=== PATIENT | male | born 1980 ===

== ENCOUNTER 2017-07-02 21:51 | Inpatient (IN) | payer MEDICAID ==
[2017-07-02 22:05] VITALS: BMI 29.9
[2017-07-02] MEDS ORDERED: Sodium Chloride 0.9% 1,000 ML IV STA (23:53)
--- NOTE | 2017-07-03 00:12 | ED PDOC ---
Upper Extremity Pain/Injury Time Seen by Provider: 07/02/17 22:00 Chief Complaint (Nursing): Upper Extremity Problem/Injury Chief Complaint (Provider): Upper Extremity Problem/Injury History Per: Patient History/Exam Limitations: no limitations Onset/Duration Of Symptoms: Days (x 3) Current Symptoms Are (Timing): Still Present Additional Complaint(s): 36 years old drug abuser male presents to the ED for evaluation of right arm swelling and pain onset 3 days. Patient reports having a bite or pimple on the forearm that drains a watery clear discharge. He states he has experienced erythema through the whole arm as well as subjective fever. Patient reports he has been withdrawing from Heroin use. He denies having any allergies. PMD: non provided Past Medical History Reviewed: Historical Data, Nursing Documentation, Vital Signs Vital Signs: Last Vital Signs Temp 98.3 F 07/02/17 22:05 Pulse 103 H 07/02/17 22:05 Resp 18 07/02/17 22:05 BP 122/80 07/02/17 22:05 Pulse Ox 96 07/02/17 22:05 - Medical History PMH: No Chronic Diseases Denies: Diabetes, Hepatitis, HIV, HTN, Chronic Kidney Disease, Seizures, Sexually Transmitted Disease - Surgical History Surgical History: No Surg Hx - Family History Family History: States: Unknown Family Hx - Social History Current smoker - smoking cessation education provided: Yes Alcohol: Social Drugs: Opiates - Immunization History Hx Tetanus Toxoid Vaccination: Yes Hx Influenza Vaccination: Yes Hx Pneumococcal Vaccination: Yes - Home Medications Home Medications: Ambulatory Orders Medication Instructions Recorded No Known Home Med 07/03/17 - Allergies Allergies/Adverse Reactions: Allergies Allergy/AdvReac Type Severity Reaction Status Date / Time No Known Allergies Allergy Verified 07/02/17 22:05 Review of Systems ROS Statement: Except As Marked, All Systems Reviewed And Found Negative Constitutional: Positive for: Fever (subjective) Musculoskeletal: Positive for: Arm Pain (Right arm) Physical Exam - Reviewed Nursing Documentation Reviewed: Yes Vital Signs Reviewed: Yes - Physical Exam Appears: Positive for: Non-toxic, No Acute Distress Head Exam: Positive for: ATRAUMATIC, NORMOCEPHALIC Skin: Positive for: Warm Eye Exam: Positive for: Normal appearance Neck: Positive for: Normal Cardiovascular/Chest: Positive for: Regular Rate, Rhythm Respiratory: Positive for: Normal Breath Sounds Gastrointestinal/Abdominal: Positive for: Normal Exam, Soft Extremity: Positive for: Normal ROM, Tenderness (Right arm consistant with cellulitis), Swelling Neurologic/Psych: Positive for: Alert, Oriented. Negative for: Motor/Sensory Deficits (Intact) - Laboratory Results Result Diagrams: 07/04/17 06:00 07/03/17 00:05 - ECG O2 Sat by Pulse Oximetry: 96 (RA) Pulse Ox Interpretation: Normal Medical Decision Making Medical Decision Making: Time: 2351 Initial Impression: Cellulitis r forearm, histoyr of ivda Initial Plan: --CMP --CBC --NaCl 1,000 ml --Toradol 30 mg IV --Unasyn 3 mg --Blood culture [id number] Patient will be admitted for cellulitis under Dr. Sharp's care, the hospitalist. iv abx ordered Scribe Attestation: Documented by Kyleigh Means, acting as a scribe for Antonio Harding MD. Provider Scribe Attestation: All medical record entries made by the Scribe were at my direction and personally dictated by me. I have reviewed the chart and agree that the record accurately reflects my personal performance of the history, physical exam, medical decision making, and the department course for this patient. I have also personally directed, reviewed, and agree with the discharge instructions and disposition. Disposition - Clinical Impression Clinical Impression: Cellulitis and abscess of upper arm and forearm - Patient ED Disposition Is Patient to be Admitted: Yes Counseled Patient/Family Regarding: Studies Performed, Diagnosis - Disposition Disposition Time: 23:00 Condition: STABLE
[2017-07-03 00:47] LABS: ALB/GLOB RATIO 1.1 (1.0-2.1); GFR AFRICAN-AMERICAN > 60; GFR NON-AFRICAN AMERICAN > 60
[2017-07-03 00:49] LABS: ALT/SGPT 31 U/L (21-72); AST/SGOT 30 U/L (17-59); BLOOD UREA NITROGEN 9 mg/dl (9-20)
[2017-07-03 01:07] LABS: BASO # 0.1 K/uL (0.0-0.2); BASO % 0.5 % (0.0-2.0); EOS # 0.2 K/uL (0.0-0.7); EOS % 1.9 % (0.0-4.0); HEMOGLOBIN 13.8 g/dL (12.0-18.0); LYMPH # 1.6 K/uL (1.0-4.3); LYMPH % 14.1 % (20.0-40.0); MEAN CELL VOLUME 85.4 fl (80.0-94.0); MEAN CORPUSCULAR HEMOGLOBIN 29.7 pg (27.0-31.0); MEAN CORPUSCULAR HGB CONC 34.7 g/dL (33.0-37.0); MEAN PLATELET VOLUME 9.4 fl (7.2-11.7); MONO # 0.7 K/uL (0.0-0.8); MONO % 6.5 % (0.0-10.0); NEUT # 8.6 K/uL (1.8-7.0); NRBC % 0.1 % (0.0-0.0); RBC 4.66 Mil/uL (4.40-5.90); RED CELL DISTRIBUTION WIDTH 13.7 % (11.5-14.5); WHITE BLOOD COUNT 11.1 K/uL (4.8-10.8)
[2017-07-03] MEDS: Enoxaparin 40 mg Syringe SC SCH (08:32)
[2017-07-03] MEDS: Sodium Chloride 0.9% 1,000 ML IV SCH ×2 (09:09→15:34)
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
[2017-07-03] MEDS ORDERED: Vancomycin 500 mg Inj IVPB SCH (15:15)
--- NOTE | 2017-07-03 17:40 | US ---
PROCEDURE: Extremity nonvascular ultrasound HISTORY: Cellulitis R/O abscess COMPARISON: None TECHNIQUE: Standard protocol for this study/examination. FINDINGS: Cutaneous and subcutaneous edema. Ill-defined hypoechoic area corresponding findings on physical examination measuring 0.7 x 2.1 x 2.4 cm likely a developing abscess. IMPRESSION: Phlegmonous process corresponding findings on physical examination right elbow at the site of redness and swelling. Cutaneous subcutaneous edema documented.
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
[2017-07-04] MEDS: Sodium Chloride 0.9% 1,000 ML IV SCH ×2 (02:30→05:30)
[2017-07-04 06:32] LABS: HEMOGLOBIN 14.2 g/dL (12.0-18.0); MEAN CELL VOLUME 85.6 fl (80.0-94.0); MEAN CORPUSCULAR HEMOGLOBIN 29.4 pg (27.0-31.0); MEAN CORPUSCULAR HGB CONC 34.4 g/dL (33.0-37.0); RBC 4.84 Mil/uL (4.40-5.90); RED CELL DISTRIBUTION WIDTH 13.5 % (11.5-14.5); WHITE BLOOD COUNT 10.7 K/uL (4.8-10.8)
[2017-07-04] MEDS: Enoxaparin 40 mg Syringe SC SCH (08:31)
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
[2017-07-04] MEDS ORDERED: Povidone Iodine Topical 10% Sol ONE (12:25)
[2017-07-04] MEDS ORDERED: Lidocaine/Epi 1% 1:100000 20 ML IJ ONE (12:25)
[2017-07-04] MEDS ORDERED: Lidocaine 2% Inj (20ml) IJ ONE (13:07)
--- NOTE | 2017-07-04 13:52 | CP.PCM.PN ---
Subjective - Date & Time of Evaluation Date of Evaluation: 07/04/17 Time of Evaluation: 13:52 - Subjective Subjective: ID Note- Pt. seen and examined .denies any fever. still has swelling and redness of the right forearm. Objective - Vital Signs/Intake and Output Vital Signs (last 24 hours): Temp Pulse Resp BP Pulse Ox 98.5 F 82 18 133/80 96 07/04/17 08:04 07/04/17 08:04 07/04/17 08:04 07/04/17 08:04 07/04/17 11:09 - Medications Medications: Current Medications Acetaminophen (Tylenol 325mg Tab) 650 mg PO Q6 PRN PRN Reason: Pain, Mild (1-3) Enoxaparin Sodium (Lovenox) 40 mg SC DAILY TALHA PRN Reason: Protocol Last Admin: 07/04/17 08:31 Dose: 40 mg Vancomycin HCl 1,500 mg/ (Sodium Chloride) 500 mls @ 250 mls/hr IVPB Q12@1000, 2200 [facility] Last Admin: 07/04/17 10:11 Dose: 250 mls/hr Ketorolac Tromethamine (Toradol) 15 mg IVP Q6 PRN PRN Reason: Pain, moderate (4-7) Ketorolac Tromethamine (Toradol) 30 mg IVP Q6 PRN PRN Reason: Pain, severe (8-10) Last Admin: 07/04/17 08:31 Dose: 30 mg - Labs Labs: - Additional Findings Additional findings: - Constitutional Appears: No Acute Distress - Head Exam Head Exam: ATRAUMATIC - Eye Exam Eye Exam: EOMI, PERRL - ENT Exam ENT Exam: Normal Oropharynx - Neck Exam Neck exam: Positive for: Full Rom - Respiratory Exam Respiratory Exam: Clear to Auscultation Bilateral, NORMAL BREATHING PATTERN - Cardiovascular Exam Cardiovascular Exam: RRR, +S1, +S2 - GI/Abdominal Exam GI & Abdominal Exam: Normal Bowel Sounds, Soft Additional comments: NT, ND - Extremities Exam Additional comments: right forearm region up to elbow with extensive edema, erythema , small dry round entry point seen but no active discharge minimal tenderness to palpation, no malodor FROM of the arm and elbow - Neurological Exam Neurological exam: Alert, Oriented x 3 Laboratory Results - last 72 hr 07/03/17 07/03/17 07/04/17 00:05 00:05 06:00 WBC 11.1 H D 10.7 RBC 4.66 4.84 Hgb 13.8 14.2 Hct 39.8 41.4 MCV 85.4 D 85.6 MCH 29.7 29.4 MCHC 34.7 34.4 RDW 13.7 13.5 Plt Count 270 268 MPV 9.4 Neut % (Auto) 77.0 H Lymph % (Auto) 14.1 L [place] % (Auto) 6.5 Eos % (Auto) 1.9 Baso % (Auto) 0.5 Neut # (Auto) 8.6 H Lymph # (Auto) 1.6 [place] # (Auto) 0.7 Eos # (Auto) 0.2 Baso # (Auto) 0.1 Sodium 139 Potassium 4.2 Chloride 97 L Carbon Dioxide 28 Anion Gap 18 BUN 9 Creatinine 0.6 L Est GFR ( Amer) > 60 Est GFR (Non-Af Amer) > 60 Random Glucose 99 Calcium 9.0 Total Bilirubin 0.9 AST 30 ALT 31 Alkaline Phosphatase 111 Total Protein 7.8 Albumin 4.0 Globulin 3.7 Albumin/Globulin Ratio 1.1 Microbiology 07/02/17 00:35 Blood Blood Culture - Preliminary NO GROWTH AFTER 24 HOURS 07/03/17 00:05 Blood Blood Culture - Preliminary NO GROWTH AFTER 24 HOURS Accession No. : [id number] Patient Name / ID : NASRA BARCENAS / [id number] Exam Date : 07/03/2017 17:04:48 ( Approved ) Study Comment : Sex / Age : M / 36Y Creator : Heath Subramanian MD Dictator : Heath Subramanian MD [employer] : [employer] : Heath Subramanian MD Approver2 : Report Date : 07/03/2017 17:38:45 My Comment : PROCEDURE: Extremity nonvascular ultrasound HISTORY: Cellulitis R/O abscess COMPARISON: None TECHNIQUE: Standard protocol for this study/examination. FINDINGS: Cutaneous and subcutaneous edema. Ill-defined hypoechoic area corresponding findings on physical examination measuring 0.7 x 2.1 x 2.4 cm likely a developing abscess. IMPRESSION: Phlegmonous process corresponding findings on physical examination right elbow at the site of redness and swelling. Cutaneous subcutaneous edema documented. Accession No. : [id number] Patient Name / ID : NASRA BARCENAS / [id number] Exam Date : 07/04/2017 14:08:08 ( Approved ) Study Comment : Sex / Age : M / 36Y Creator : Douglas Valdes MD Dictator : Douglas Valdes MD [employer] : [employer] : Douglas Valdes MD Approver2 : Report Date : 07/04/2017 14:44:56 My Comment : PROCEDURE: Bilateral Elbow Radiographs. HISTORY: R elbow cellulitis COMPARISON: None. FINDINGS: BONES: Right Elbow: No acute fracture. Left Elbow: No acute fracture. JOINTS: Right Elbow: Unremarkable. Left Elbow: Unremarkable. JOINT EFFUSION: Right Elbow: None. Left Elbow: None. SOFT TISSUES: Right Elbow: Normal. Left Elbow: Normal. OTHER FINDINGS: None. IMPRESSION: No demonstrated fracture or dislocation. Assessment and Plan (1) Cellulitis and abscess of upper arm and forearm Status: Acute - Assessment and Plan (Free Text) Assessment: A/P- 36 year old IVDU male admitted with right forearm cellulitis/? abscess. afebrile minimal leukocytosis resolved. blood cx- neg x 2 US report- right forearm subcutaneous phlegmon /abscess as per report. plan- advise to keep the forearm elevated and apply warm compress to the area. advise IV vancomycin 15 mg/kg BID. day #2. keep trough <15. surgical evaluation of the forearm abscess , may need Incision and drainage .
--- NOTE | 2017-07-04 14:46 | RAD ---
PROCEDURE: Bilateral Elbow Radiographs. HISTORY: R elbow cellulitis COMPARISON: None. FINDINGS: BONES: Right Elbow: No acute fracture. Left Elbow: No acute fracture. JOINTS: Right Elbow: Unremarkable. Left Elbow: Unremarkable. JOINT EFFUSION: Right Elbow: None. Left Elbow: None. SOFT TISSUES: Right Elbow: Normal. Left Elbow: Normal. OTHER FINDINGS: None. IMPRESSION: No demonstrated fracture or dislocation.
--- NOTE | 2017-07-04 22:57 | CP.PCM.PN ---
Subjective - Date & Time of Evaluation Date of Evaluation: 07/04/17 Time of Evaluation: 11:45 - Subjective Subjective: Feels better, has swelling and redness, no pain to right arm Denies fever or chills Objective - Vital Signs/Intake and Output Vital Signs (last 24 hours): Temp Pulse Resp BP Pulse Ox 98.4 F 88 18 131/79 98 07/04/17 15:49 07/04/17 15:49 07/04/17 15:49 07/04/17 15:49 07/04/17 15:49 - Medications Medications: Current Medications Acetaminophen (Tylenol 325mg Tab) 650 mg PO Q6 PRN PRN Reason: Pain, Mild (1-3) Enoxaparin Sodium (Lovenox) 40 mg SC DAILY TALHA PRN Reason: Protocol Last Admin: 07/04/17 08:31 Dose: 40 mg Vancomycin HCl 1,500 mg/ (Sodium Chloride) 500 mls @ 250 mls/hr IVPB Q12@1000, 2200 [facility] Last Admin: 07/04/17 21:34 Dose: 250 mls/hr Ketorolac Tromethamine (Toradol) 15 mg IVP Q6 PRN PRN Reason: Pain, moderate (4-7) Ketorolac Tromethamine (Toradol) 30 mg IVP Q6 PRN PRN Reason: Pain, severe (8-10) Last Admin: 07/04/17 15:02 Dose: 30 mg - Labs Labs: 07/04/17 06:00 07/03/17 00:05 - Constitutional Appears: Well, No Acute Distress - Head Exam Head Exam: ATRAUMATIC - Respiratory Exam Respiratory Exam: Clear to Ausculation Bilateral, NORMAL BREATHING PATTERN - Cardiovascular Exam Cardiovascular Exam: REGULAR RHYTHM, +S1, +S2 - GI/Abdominal Exam GI & Abdominal Exam: Soft, Normal Bowel Sounds - Neurological Exam Neurological Exam: Alert, Oriented x3 - Psychiatric Exam Psychiatric exam: Normal Affect - Skin Skin Exam: Normal Color, Warm Assessment and Plan (1) Cellulitis and abscess of upper arm and forearm Assessment & Plan: IV antibiotics US shows phlegmonous process right forearm Surgery consult ID consult appreciated Status: Acute (2) Drug abuse Status: Chronic
[2017-07-05 08:18] VITALS: BP 134/82; PULSE 66; RESP 20; TEMP 98; O2SAT 99
[2017-07-05] MEDS: Enoxaparin 40 mg Syringe SC SCH (08:18)
--- NOTE | 2017-07-05 09:57 | CP.PCM.PN ---
Subjective - Date & Time of Evaluation Date of Evaluation: 07/05/17 Time of Evaluation: 08:00 - Subjective Subjective: Patient seen and examined. No acute events over night. Denies fever/chills. Reports pain in right elbow has improved. Erythema has improved. No longer having purulent drainage from site. Objective - Vital Signs/Intake and Output Vital Signs (last 24 hours): Temp Pulse Resp BP Pulse Ox 98 F 66 20 134/82 99 07/05/17 08:18 07/05/17 08:18 07/05/17 08:18 07/05/17 08:18 07/05/17 08:18 - Medications Medications: Current Medications Acetaminophen (Tylenol 325mg Tab) 650 mg PO Q6 PRN PRN Reason: Pain, Mild (1-3) Enoxaparin Sodium (Lovenox) 40 mg SC DAILY TALHA PRN Reason: Protocol Last Admin: 07/05/17 08:18 Dose: Not Given Vancomycin HCl 1,500 mg/ (Sodium Chloride) 500 mls @ 250 mls/hr IVPB Q12@1000, 2200 [facility] Last Admin: 07/05/17 09:32 Dose: 250 mls/hr Ketorolac Tromethamine (Toradol) 15 mg IVP Q6 PRN PRN Reason: Pain, moderate (4-7) Ketorolac Tromethamine (Toradol) 30 mg IVP Q6 PRN PRN Reason: Pain, severe (8-10) Last Admin: 07/05/17 05:58 Dose: 30 mg - Labs Labs: 07/04/17 06:00 07/03/17 00:05 - Constitutional Appears: No Acute Distress - Head Exam Head Exam: NORMOCEPHALIC - Eye Exam Eye Exam: Normal appearance - ENT Exam ENT Exam: Mucous Membranes Moist - Neck Exam Neck Exam: Normal Inspection - Respiratory Exam Respiratory Exam: NORMAL BREATHING PATTERN - Cardiovascular Exam Cardiovascular Exam: +S1, +S2 - GI/Abdominal Exam GI & Abdominal Exam: Soft - Neurological Exam Neurological Exam: Alert, Awake, Oriented x3 - Psychiatric Exam Psychiatric exam: Normal Mood - Skin Skin Exam: Dry, Intact, Warm Assessment and Plan - Assessment and Plan (Free Text) Assessment: 36M with R elbow cellulitis and abscess formation s/p I&D Plan: Packing removed Sterile dressing applied C/w ABx as per ID recs Analgesics prn D/w Dr. Clif Gandara PGY2
--- NOTE | 2017-07-05 22:36 | CP.PCM.DIS ---
Provider - Provider Date of Admission: 07/03/17 18:16 Attending physician: David Sharp MD Diagnosis - Discharge Diagnosis (1) Cellulitis and abscess of upper arm and forearm Status: Acute (2) Drug abuse Status: Chronic Hospital Course - Lab Results Lab Results: Micro Results 07/04/17 17:00 Elbow - Right Gram Stain - Final 07/04/17 17:00 Elbow - Right Wound Culture - Preliminary Gram Positive Cocci 07/03/17 16:12 Blood-Venous Blood Culture - Preliminary NO GROWTH AFTER 48 HOURS 07/03/17 16:12 Blood-Venous Blood Culture - Preliminary NO GROWTH AFTER 48 HOURS 07/02/17 00:35 Blood Blood Culture - Preliminary NO GROWTH AFTER 48 HOURS 07/03/17 00:05 Blood Blood Culture - Preliminary NO GROWTH AFTER 48 HOURS Most Recent Lab Values WBC 10.7 K/uL (4.8-10.8) 07/04/17 06:00 RBC 4.84 Mil/uL (4.40-5.90) 07/04/17 06:00 Hgb 14.2 g/dL (12.0-18.0) 07/04/17 06:00 Hct 41.4 % (35.0-51.0) 07/04/17 06:00 MCV 85.6 fl (80.0-94.0) 07/04/17 06:00 MCH 29.4 pg (27.0-31.0) 07/04/17 06:00 MCHC 34.4 g/dL (33.0-37.0) 07/04/17 06:00 RDW 13.5 % (11.5-14.5) 07/04/17 06:00 Plt Count 268 K/uL (130-400) 07/04/17 06:00 MPV 9.4 fl (7.2-11.7) 07/03/17 00:05 Neut % (Auto) 77.0 % (50.0-75.0) H 07/03/17 00:05 Lymph % (Auto) 14.1 % (20.0-40.0) L 07/03/17 00:05 [place] % (Auto) 6.5 % (0.0-10.0) 07/03/17 00:05 Eos % (Auto) 1.9 % (0.0-4.0) 07/03/17 00:05 Baso % (Auto) 0.5 % (0.0-2.0) 07/03/17 00:05 Neut # (Auto) 8.6 K/uL (1.8-7.0) H 07/03/17 00:05 Lymph # (Auto) 1.6 K/uL (1.0-4.3) 07/03/17 00:05 [place] # (Auto) 0.7 K/uL (0.0-0.8) 07/03/17 00:05 Eos # (Auto) 0.2 K/uL (0.0-0.7) 07/03/17 00:05 Baso # (Auto) 0.1 K/uL (0.0-0.2) 07/03/17 00:05 ESR 36 mm/hr (0-15) H 07/04/17 14:17 Sodium 139 mmol/l (132-148) 07/03/17 00:05 Potassium 4.2 MMOL/L (3.6-5.0) 07/03/17 00:05 Chloride 97 mmol/L (98-107) L 07/03/17 00:05 Carbon Dioxide 28 mmol/L (22-30) 07/03/17 00:05 Anion Gap 18 (10-20) 07/03/17 00:05 BUN 9 mg/dl (9-20) 07/03/17 00:05 Creatinine 0.6 mg/dl (0.8-1.5) L 07/03/17 00:05 Est GFR ( Amer) > 60 07/03/17 00:05 Est GFR (Non-Af Amer) > 60 07/03/17 00:05 Random Glucose 99 mg/dL (75-110) 07/03/17 00:05 Calcium 9.0 mg/dL (8.4-10.2) 07/03/17 00:05 Total Bilirubin 0.9 mg/dl (0.2-1.3) 07/03/17 00:05 AST 30 U/L (17-59) 07/03/17 00:05 ALT 31 U/L (21-72) 07/03/17 00:05 Alkaline Phosphatase 111 U/L (38-126) 07/03/17 00:05 Total Protein 7.8 G/DL (6.3-8.2) 07/03/17 00:05 Albumin 4.0 g/dL (3.5-5.0) 07/03/17 00:05 Globulin 3.7 gm/dL (2.2-3.9) 07/03/17 00:05 Albumin/Globulin Ratio 1.1 (1.0-2.1) 07/03/17 00:05 - Hospital Course Hospital Course: A 36 year old male with hx of IV drug use admitted for cellulitis of the right arm which he claims started as a pimple and then got worse. An US of the RUE showed a phlegmonous process in the right arm. Surgery was called and a bedside I&D was done yesterday. The patient refused to stay in the hospital to get treatment and signed out AMA. Discharge Exam - Head Exam Head Exam: ATRAUMATIC - Respiratory Exam Respiratory Exam: Clear to PA & Lateral, NORMAL BREATHING PATTERN - Cardiovascular Exam Cardiovascular Exam: REGULAR RHYTHM, +S1, +S2 - GI/Abdominal Exam GI & Abdominal Exam: Normal Bowel Sounds - Skin Skin Exam: Normal Color, Warm Discharge Plan - Follow Up Plan Condition: STABLE Disposition: AGAINST MEDICAL ADVICE Instructions: Cellulitis (Skin Infection), Adult (DC) Referrals: [facility] [Outside] Damaris Colon MD [Staff Provider] -
== END 2017-07-05 14:07 | disposition left against medical advice (07) | DRG 277 ==
LOC: H.ER 21:51 → H.ERHOLD 07-03 03:34 → H.MEDSURG1 07-03 05:26 → OBSVTOIN 07-03 18:16
PROVIDERS: ADMIT Internal Medicine; ATTEND Internal Medicine
PROC: 0H9BXZZ Drainage of Right Upper Arm Skin, External Approach (ICD-10-PCS; principal; 2017-07-04)
DX: L03.113 Cellulitis of right upper limb (principal); F11.90 Opioid use, unspecified, uncomplicated; L02.413 Cutaneous abscess of right upper limb; D72.828 Other elevated white blood cell count